=== PATIENT | male | born 1985 | race Caucasian/White ===

== ENCOUNTER 2018-06-02 18:11 | Emergency (ER) | payer MEDICARE, MEDICAID, SELFPAY ==
[2018-06-02 18:13] VITALS: BP 151/85; PULSE 90; RESP 17; TEMP 36.8; O2SAT 97; BMI 43.6
--- NOTE | 2018-06-02 18:30 | ED.VISSUMM ---
- ER Visit Summary Date of Service: 06/02/18 Chief Complaint: [ History of Present Illness: The patient is a 33 M right testicular pain presents to the emergency department with right testicular pain for the past 1 week. It is atraumatic. The patient states that he had a dull ache in his right testicle that is some to be worsening. He states it hurts to walk. His partner was recently treated for sexually transmitted disease. He denies any change in urination. He denies any fevers or chills. He denies any nausea or vomiting. The patient is otherwise healthy. He has no history of immunosuppression. Physical Examination: Exam is relatively unremarkable. Examination of the genitourinary system demonstrates normal external genitalia. There is no lesions or rashes. There is no penile discharge. Cremasteric is preserved bilaterally. Right testicle is tender over the epididymis. There is no evidence of torsion. Test Results: [] Emergency Department Course and Treatment: Based on the patient's symptomology and duration of symptoms, I do feel that this is likely epididymitis. I am going to treat the patient. He is given Rocephin and doxycycline. He will be kept on doxycycline for the next 14 days. He will given a short course of analgesics and outpatient urology follow-up. He was counseled concerning symptoms and reasons to return. He will be discharged home. Treatment Plan: [] Disposition: Discharge Impression: 1. Right epididymitis This note was generated with Pandorama dictation software. It may contain incorrect words, spelling, and punctuation that were not noted in review of the chart prior to signing ED Disposition - Plan for ED Patient: Chief Complaint: Male Pain/Injury Instructions: ED Epididymitis Prescriptions: Hydrocodone Bitart/Apap 5-325 [[place] 5MG-325MG] 1 tab PO Q6H PRN PRN 2 Days #6 tab PRN Reason: Pain Doxycycline 100 mg PO BID #28 cap Referrals: Benny Robins MD [STAFF PHYSICIAN] - 2 Days for wound check
--- NOTE | 2018-06-02 18:33 | ED.DCSUM_ITS ---
- ER Visit Summary Date of Service: 06/02/18 Chief Complaint: [ History of Present Illness: The patient is a 33 M right testicular pain presents to the emergency department with right testicular pain for the past 1 week. It is atraumatic. The patient states that he had a dull ache in his right testicle that is some to be worsening. He states it hurts to walk. His partner was recently treated for sexually transmitted disease. He denies any change in urination. He denies any fevers or chills. He denies any nausea or vomiting. The patient is otherwise healthy. He has no history of immunosuppression. Physical Examination: Exam is relatively unremarkable. Examination of the genitourinary system demonstrates normal external genitalia. There is no lesions or rashes. There is no penile discharge. Cremasteric is preserved bilaterally. Right testicle is tender over the epididymis. There is no evidence of torsion. Test Results: [] Emergency Department Course and Treatment: Based on the patient's symptomology and duration of symptoms, I do feel that this is likely epididymitis. I am going to treat the patient. He is given Rocephin and doxycycline. He will be kept on doxycycline for the next 14 days. He will given a short course of analgesics and outpatient urology follow-up. He was counseled concerning symptoms and reasons to return. He will be discharged home. Treatment Plan: [] Disposition: Discharge Impression: 1. Right epididymitis This note was generated with [employer] dictation software. It may contain incorrect words, spelling, and punctuation that were not noted in review of the chart prior to signing ED Disposition - Plan for ED Patient: Chief Complaint: Male Pain/Injury Instructions: ED Epididymitis Prescriptions: Hydrocodone Bitart/Apap 5-325 [[place] 5MG-325MG] 1 tab PO Q6H PRN PRN 2 Days #6 tab PRN Reason: Pain Doxycycline 100 mg PO BID #28 cap Referrals: Benny Robins MD [STAFF PHYSICIAN] - 2 Days for wound check
[2018-06-02] MEDS: HYDROcodone Bitartrate/Apap 5/325 Tablet PO ×2 (18:42→18:45)
[2018-06-02] MEDS: Doxycycline 100 MG CAPSULE PO (18:42)
[2018-06-02] MEDS: Ceftriaxone 500 MG Vial 250 MG IM (19:05)
--- OUTSIDE RECORDS SUMMARY | 2018-08-05 12:14 | XMS RPT_ITS ---
:1985 Author Organization [facility] Care Team Providers Name Role Phone ZAIRA BLACKBURN (CEMENT SIDE LASTER) Attending Unavailable Primay Care Physicia, No Primary Care Unavailable Srinivas Chen Attending Unavailable PROBLEMS PROBLEMS DATE TYPE CONDITION / CODE ATTENDING STATUS SOURCE 06/06/2018 Active Epididymitis / ZAIRA BLACKBURN Active [facility] N45.1(ICD-10) (CEMENT SIDE LASTER) Main [place] Repository 06/06/2018 Active Testicular pain, ZAIRA BLACKBURN Active [facility] unspecified / (CEMENT SIDE LASTER) Main [place] N50.819(ICD-10) Repository 06/02/2018 Unknown N45.1 - Srinivas Chen Active [place] Epididymitis / Community N45.1(ICD-10) Hospital Repository PROCEDURES PROCEDURES No Procedure Records FoundRESULTS RESULTS PROGRESS Observed: 06/06/2018 Status: COMPLETED Source: [place] 3:40 PM [facility] REPOSITORY HNO ID: [id number] Author: Zaira (Hair Machine Operator) Alexey Service: (none) Author Type: Nurse Specialist Type: Progress Notes Filed: 06/06/2018 4:14 PM Note Text: This note was created using Golgiriter. Subjective Amie Flannery is a 33 year old male. HPI See Urgent care note earlier today. Per notes seen at [facility] for epididymitis, treated with rocephin, provided with script for doxycyline and advised to follow up with urology. Reports she's been taking doxycycline for about 4 days. He reports he has about 2 more weeks of antibiotic to take. He reports difficult for him to have lifting at work, as for work excuse regarding this in to be off work for today's appointment. Has not made an appointment with urology. Review of Systems Constitutional: Negative. Genitourinary: Positive for testicular pain. Objective BP 110/80 (BP Site: Right Arm, BP Position: Sitting, BP Cuff Size: Large Adult) Pulse 60 Resp 16 Physical Exam Constitutional: He is oriented to person, place, and time. He appears well-developed and well-nourished. HENT: Head: Normocephalic and atraumatic. Neurological: He is alert and oriented to person, place, and time. Skin: Skin is warm and dry. Nursing note and vitals reviewed. Assessment and Plan 1. Epididymitis - ICD9: 604.90, ICD10: N45.1 (primary diagnosis) 2. Testicular pain - ICD9: 608.9, ICD10: N50.819 - CONSULT TO UROLOGY Provided with work excuse per request. Advised to continue with antibiotics until gone and to make an appointment with urology Zaira Blackburn APRN.CNS CNOV Observed: 06/06/2018 Status: COMPLETED Source: [place] 3:40 PM [facility] REPOSITORY Office Visit (INTMWS) PRUDENCIOAMIE Payton ([id number]) 1985 M [facility] Date Time Provider Department 06/06/18 3:40 PM ZAIRA BLACKBURN (CEMENT SIDE LASTER) INTMWS During your visit today, we recorded the following information about you: Pulse Respiration Blood pressure 60/minute 16/minute 110/80 Zaira Blackburn APRN.CNS 06/06/2018 4:14 PM Signed This note was created using NoteWriter. Subjective Amie Flannery is a 33 year old male. HPI See Urgent care note earlier today. Per notes seen at [facility] for epididymitis, treated with rocephin, provided with script for doxycyline and advised to follow up with urology. Reports she's been taking doxycycline for about 4 days. He reports he has about 2 more weeks of antibiotic to take. He reports difficult for him to have lifting at work, as for work excuse regarding this in to be off work for today's appointment. Has not made an appointment with urology. Review of Systems Constitutional: Negative. Genitourinary: Positive for testicular pain. Objective BP 110/80 (BP Site: Right Arm, BP Position: Sitting, BP Cuff Size: Large Adult) Pulse 60 Resp 16 Physical Exam Constitutional: He is oriented to person, place, and time. He appears well-developed and well-nourished. HENT: Head: Normocephalic and atraumatic. Neurological: He is alert and oriented to person, place, and time. Skin: Skin is warm and dry. Nursing note and vitals reviewed. Assessment and Plan 1. Epididymitis - ICD9: 604.90, ICD10: N45.1 (primary diagnosis) 2. Testicular pain - ICD9: 608.9, ICD10: N50.819 - CONSULT TO UROLOGY Provided with work excuse per request. Advised to continue with antibiotics until gone and to make an appointment with urology Zaira Blackburn APRN.CEMENT SIDE LASTER Zaira Blackburn APRN.CEMENT SIDE LASTER 06/06/2018 3:54 PM Signed Take doxycyline as directed until gone. Make appt with urology Referring Provider: SELF [200] Allergies As of Date: 06/06/2018 (No Known Allergies) Date Reviewed: 06/06/2018 Reviewed by: Francine Joseph LPN - Fully Assessed Reason for Visit: Hospital F/U [57] Primary Visit Diagnosis:Epididymitis [N45.1] Other Visit Diagnosis:Testicular pain [N50.819] Order(s):CONSULT TO UROLOGY [9041] Order #: [id number]: 1 Prescriptions as of 06/06/2018 Sig: DOXYCYCLINE HYCLATE 100 MG CA* Take 100 mg by mouth twice da* HYDROCODONE 5 MG-ACETAMINOPHE* Take 1 tablet by mouth every * METHYLPREDNISOLONE 4 MG TABLE* Take by mouth per package ins* Patient not taking: Reported on 06/06/2018 COLCHICINE 0.6 MG TABLET Take 1 tablet by mouth twice * Patient not taking: Reported on 06/06/2018 ALLOPURINOL 100 MG TABLET Take 1 tablet by mouth once d* Patient not taking: Reported on 06/06/2018 Problem List As Of Date 06/06/2018 Noted Resolved PERS HX TOBACCO USE [Z87.891] INVALID FOR*11/03/2004 DEPRESSIVE DISORDER NEC [F32.9] INVALID FOR* BIPOLAR AFFECTIVE, MIXED [296.6] INVALID FOR*08/08/2004 Other and unspecified alcohol dependence, unspe*INVALID FOR*10/13/2013 Family history of other cardiovascular diseases*INVALID FOR*10/13/2013 HYPERLIPIDEMIA NEC/NOS [E78.5] INVALID FOR* Bipolar 1 disorder; per psych in [place] [F3*INVALID FOR*08/15/2011 Hyperuricemia [E79.0] INVALID FOR* Chronic gout of ankle [M1A.0790] INVALID FOR* Other instructions from your clinician: Take doxycyline as directed until gone. Make appt with urology Letter Text Zaira Blackburn APRN.CNS Internal Medicine [address] [address] Dept: [phone] Dept 06/06/2018 Aime Flannery [facility]# [id number] [address] [facility] [id number] TO WHOM IT MAY CONCERN: This is to confirm that Amie Flannery had an appointment and was seen at the [facility] in the Department of Internal Medicine by Zaira Blackburn APRN.CNS on 06/06/2018. He needs to avoid heavy lifting for one week and will have an upcoming appointment to follow up on illness. Sincerely yours, Electronically Signed Zaira Blackburn APRN.CNS Encounter Status:Closed by ZAIRA PAULINO on 06/06/18 PROGRESS Observed: 06/06/2018 Status: COMPLETED Source: [place] 1:39 PM [facility] REPOSITORY HNO ID: [id number] Author: Xenia Hills Service: (none) Author Type: Physician Type: Progress Notes Filed: 06/06/2018 1:49 PM Note Text: Patient seen in the [facility] ER 06/02/18 for testicular pain and treated for epididymitis with rocephin. He was prescribed doxycycline and advised f/u with urology. He went home from work today because of testicular pain. I recommended urology see him rather than the [facility]. Urology follow up facilitated for this afternoon. The appointment time did not work with his schedule, so a primary care appointment was scheduled this afternoon. The patient called the PSS an inappropriate name while leaving to see if IM would see him immediately instead. RATNA Observed: 06/06/2018 Status: COMPLETED Source: [place] 12:45 PM [facility] REPOSITORY Office Visit (UCWSTR) AMIE FLANNERY ([id number]) 1985 M [facility] Date Time Provider Department 06/06/18 12:45 PM [facility] WSTR UCWSTR During your visit today, we recorded the following information about you: Temperature Pulse Respiration Blood pressure 97 degrees 88/minute 24/minute 120/88 Weight 154.2 kg Xenia Hills MD 06/06/2018 1:49 PM Signed Patient seen in the [facility] ER 06/02/18 for testicular pain and treated for epididymitis with rocephin. He was prescribed doxycycline and advised f/u with urology. He went home from work today because of testicular pain. I recommended urology see him rather than the [facility]. Urology follow up facilitated for this afternoon. The appointment time did not work with his schedule, so a primary care appointment was scheduled this afternoon. The patient called the PSS an inappropriate name while leaving to see if IM would see him immediately instead. Referring Provider: SELF [200] Allergies As of Date: 06/06/2018 (No Known Allergies) Date Reviewed: 06/06/2018 Reviewed by: Lala Saravia Ma - Fully Assessed Reason for Visit: Penis/Scrotum Problem [80] Primary Visit Diagnosis:Testicular pain [N50.819] Prescriptions as of 06/06/2018 Sig: DOXYCYCLINE HYCLATE 100 MG CA* Take 100 mg by mouth twice da* HYDROCODONE 5 MG-ACETAMINOPHE* Take 1 tablet by mouth every * METHYLPREDNISOLONE 4 MG TABLE* Take by mouth per package ins* COLCHICINE 0.6 MG TABLET Take 1 tablet by mouth twice * ALLOPURINOL 100 MG TABLET Take 1 tablet by mouth once d* Problem List As Of Date 06/06/2018 Noted Resolved PERS HX TOBACCO USE [Z87.891] INVALID FOR*11/03/2004 DEPRESSIVE DISORDER NEC [F32.9] INVALID FOR* BIPOLAR AFFECTIVE, MIXED [296.6] INVALID FOR*08/08/2004 Other and unspecified alcohol dependence, unspe*INVALID FOR*10/13/2013 Family history of other cardiovascular diseases*INVALID FOR*10/13/2013 HYPERLIPIDEMIA NEC/NOS [E78.5] INVALID FOR* Bipolar 1 disorder; per psych in [place] [F3*INVALID FOR*08/15/2011 Hyperuricemia [E79.0] INVALID FOR* Chronic gout of ankle [M1A.0790] INVALID FOR* Follow-up and Disposition History Recorded Encounter Status:Closed by XENIA HILLS MD on 06/06/18 EMERGENCY DEPARTMENT Observed: 06/02/2018 Status: F Source: [place] SUMMARY 6:49 PM [facility] REPOSITORY [facility] Medical Records Department [address] [place] [id number] Emergency Department Summary 06/02/18 1830 MR#: [id number] Acct: [id number] Name: AMIE FLANNERY Rep #: [id number] : 1985 33 From: Srinivas Chen MD PCP: Care Physician, No Primary Status: REG ER - ER Visit Summary Date of Service: 06/02/18 Chief Complaint: [ History of Present Illness: The patient is a 33 M right testicular pain presents to the emergency department with right testicular pain for the past 1 week. It is atraumatic. The patient states that he had a dull ache in his right testicle that is some to be worsening. He states it hurts to walk. His partner was recently treated for sexually transmitted disease. He denies any change in urination. He denies any fevers or chills. He denies any nausea or vomiting. The patient is otherwise healthy. He has no history of immunosuppression. Physical Examination: Exam is relatively unremarkable. Examination of the genitourinary system demonstrates normal external genitalia. There is no lesions or rashes. There is no penile discharge. Cremasteric is preserved bilaterally. Right testicle is tender over the epididymis. There is no evidence of torsion. Test Results: [] Emergency Department Course and Treatment: Based on the patient's symptomology and duration of symptoms, I do feel that this is likely epididymitis. I am going to treat the patient. He is given Rocephin and doxycycline. He will be kept on doxycycline for the next 14 days. He will given a short course of analgesics and outpatient urology follow-up. He was counseled concerning symptoms and reasons to return. He will be discharged home. Treatment Plan: [] Disposition: Discharge Impression: 1. Right epididymitis This note was generated with [employer] dictation software. It may contain incorrect words, spelling, and punctuation that were not noted in review of the chart prior to signing ED Disposition - Plan for ED Patient: Chief Complaint: Male Pain/Injury Instructions: ED Epididymitis Prescriptions: Hydrocodone Bitart/Apap 5-325 [[place] 5MG-325MG] 1 tab PO Q6H PRN PRN 2 Days #6 tab PRN Reason: Pain Doxycycline 100 mg PO BID #28 cap Referrals: Benny Robins MD [STAFF PHYSICIAN] - 2 Days for wound check What to do if you have Problems For any increased pain, shortness of breath, bleeding, nausea or vomiting, chest pain, or any unexpected problems, contact your Primary Care Provider. Call [facility] ([phone]) or report to the closest Emergency Room. Call 911 if necessary. 06/02/18 7714 <Electronically signed by Srinivas Chen MD> Date Srinivas Chen MD Cosigner Signature (If Indicated): Date CC: No Primary Care Physician ALLERGIES ALLERGIES DATE TYPE / CODE NAME / CODE REACTION SEVERITY SOURCE 06/02/2018 Drug No Known Unknown [facility] Allergy/416 Allergies/V66377 Hospital 762001(SNOM 0388(RXNORM) Repository ED CT) Drug NO KNOWN [facility] Class/08013 ALLERGIES Main [place] 1003(SNOMED Repository CT) ENCOUNTERS ENCOUNTERS ADMIT/DISCHARGE ACCOUNT ADMITTING ENCOUNTER LOCATION SOURCE NUMBER CLASS 06/06/2018/06/07/19 [id number] [address] Repository 06/06/2018/06/06/19 [id number] Ambulatory [address] Repository 06/02/2018/06/02/19 [id number] Emergency [facility] ing:ED Repository PAYERS PAYERS ENCOUNTER GUARANTOR PAYER SUBSCRIBER SOURCE 06/02/2018 AMIE FLANNERY425 Primary AMIE GALLEGOS: [facility] Insurance:BRENDA [id number] [address]Tjq: (544) PLANPolicy Number: Repository [phone] HP) [id number] Date:[id number] [address]LO: 06/02/2018 Secondary NOT GIVENUNK [place] Insurance:SELF PAY [facility] Number: Effective Repository Date:2018-06-02
== END 2018-06-02 19:23 | disposition home or self-care (01) ==
LOC: ED 18:47
PROVIDERS: Emergency Provider Emergency Medicine
DX: N45.1 Epididymitis (principal); E66.9 Obesity, unspecified; Z72.0 Tobacco use
CPT/HCPCS: 96372; 99283